=== PATIENT | male | born 1950 | race Caucasian/White ===

== ENCOUNTER → 2020-04-22 | Outpatient (CLI) | payer BC ==
[2020-04-22 11:58] LABS: African American GFR (CKD) >90 (>60 ml/min/1.73 sqM); Blood Urea Nitrogen 13 mg/dL (9-20); Non-African American GFR(CKD) >90 (>60 ml/min/1.73 sqM)
--- NOTE | 2020-04-22 14:47 | CT ---
EXAMINATION TYPE: CT abdomen pelvis w con DATE OF EXAM: 04/22/2020 COMPARISON: NONE HISTORY: 69-year-old male pain, K57.32, Diverticulitis TECHNIQUE: Contiguous axial scanning of the abdomen and pelvis following administration of 100 ml Omn ipaque 300 IV contrast. Delayed images through the kidneys and coronal/sagittal reconstructions perf ormed. CT DLP: 1427.5 mGycm Automated exposure control for dose reduction was used. FINDINGS: Heart normal size without pericardial effusion. Lung bases clear without pleural effusion. Small hiatal hernia. Liver borderline in size at 17.3 cm. There is low attenuation of the hepatic parenchyma suggesting fa tty infiltration. Nonspecific 8 mm hypodensity centrally in the right liver lobe likely a cyst. Stephanie l venous system is patent. No biliary ductal dilatation. Gallbladder, adrenal glands, spleen, and pancreas appear within normal limits. Bilateral extrarenal pelves with symmetric uptake and excretion of contrast in the kidneys. 1.7 cm cortical cyst anterior lower pole left kidney. No dilated small bowel, free fluid, free air. Nonspecific prominent 9 mm left common iliac chain lymph node. Otherwise, no mesenteric or retroperit zamora lymphadenopathy seen. Cecum is high riding. Scattered mild stool burden. Generalized colonic diverticulosis, greatest in th e sigmoid colon. There may be slight pericolonic fat stranding at the proximal sigmoid colon, coronal image 43. Staple line from prior resection and re-anastomosis at the rectosigmoid junction. No peric olic inflammatory change. Mild atherosclerotic calcifications throughout the infrarenal abdominal aorta and iliac arteries. Multiple infraumbilical ventral abdominal wall hernias, largest measuring 7.1 cm wide and the second largest measuring 3.0 cm wide. These hernias and 11.7 cm craniocaudal. Additional small supraumbilical midline hernia measuring 2.7 cm wide. Prior inferior abdominal wall mesh repair. Some thickening in the bilateral inguinal regions suggest inguinal hernia repairs as well. This can be correlated clinically. There appears to be a large hydrocele of the left hemiscrotum measuring up to 9.8 x 8.9 x 7.0 cm. Circumferential bladder wall thickening. Central prostatic calcifications. Prostate gland enlargement 5.3 cm wide. No abnormal fluid collections in the pelvis or pelvic lymphadenopathy seen. Bones: Right hip total arthroplasty. Moderate degenerative change left hip. Moderate degenerative disc disea se and facet arthropathy lower lumbar spine. IMPRESSION: 1. LARGE 9.8 CM LEFT SCROTAL HYDROCELE. CLINICAL CORRELATION RECOMMENDED. CONSIDER SCROTAL ULTRASOUND . 2. GENERALIZED COLONIC DIVERTICULOSIS, GREATEST IN THE SIGMOID COLON. PRIOR RESECTION AND REANASTOMOS IS AT THE RECTOSIGMOID JUNCTION. POSSIBLE MILD ACUTE DIVERTICULITIS ALONG THE PROXIMAL SIGMOID. NO AB SCESS OR FREE AIR. 3. PRIOR LOWER ABDOMINAL VENTRAL WALL MESH REPAIR. THERE IS SOME SOFT TISSUE THICKENING IN THE INGUIN AL REGION SUGGESTING PRIOR INGUINAL HERNIA REPAIRS WELL. 4. A SERIES OF MIDLINE INFRAUMBILICAL OMENTAL FAT-CONTAINING HERNIAS SPANNING 11.7 CM CRANIOCAUDAL. T HE LARGEST OF THESE MEASURES 7.1 CM WIDE. A SMALL SUPRAUMBILICAL FAT-CONTAINING MIDLINE HERNIA MEASUR ING 2.7 CM WIDE. 5. CIRCUMFERENTIAL BLADDER WALL THICKENING COULD REPRESENT CHRONIC BLADDER WALL HYPERTROPHY GIVEN PRO STATOMEGALY (5.3 CM WIDE) VERSUS CYSTITIS. CLINICALLY CORRELATE. 6. HEPATIC STEATOSIS AND SMALL HIATAL HERNIA.
== END | disposition home or self-care (01) ==
LOC: RADCTMAIN 11:08
PROVIDERS: ATTEND Surgery Plastic and Reconstructive Surgery
DX: K57.30 Diverticulosis of large intestine without perforation or abscess without bleeding (principal); N43.3 Hydrocele, unspecified; K42.9 Umbilical hernia without obstruction or gangrene; K44.9 Diaphragmatic hernia without obstruction or gangrene; K76.0 Fatty (change of) liver, not elsewhere classified; R93.41 Abnormal radiologic findings on diagnostic imaging of renal pelvis, ureter, or bladder; Z98.0 Intestinal bypass and anastomosis status; Z98.890 Other specified postprocedural states
CPT/HCPCS: 82565; 84520; 74177; 36415; Q9967

== ENCOUNTER 2020-04-29 08:00 | Day surgery (SDC) | payer BC ==
[~2020-04-29 08:00] MED LIST: LACTATED RINGERS 1,000 ML IV SCH
--- NOTE | 2020-04-29 08:15 | P.GSHP ---
History of Present Illness H&P Date: 04/29/20 CHIEF COMPLAINT: GERD and colon screen HISTORY OF PRESENT ILLNESS: The patient is a 69-year-old male who presents with gastroesophageal reflux disease and need for colon screen. Upper and lower endoscopy were offered for further evaluation and management. PAST MEDICAL HISTORY: Please see list. PAST SURGICAL HISTORY: Please see list. MEDICATIONS: Please see list. ALLERGIES: Please see list. SOCIAL HISTORY: No illicit drug use FAMILY HISTORY: No reports of Crohn disease or ulcerative colitis. REVIEW OF ORGAN SYSTEMS: CONSTITUTIONAL: No reports of fevers or chills. GI: Denies any blood in stools or constipation. PHYSICAL EXAM: VITAL SIGNS: Stable GENERAL: Well-developed pleasant in no acute distress. HEENT: No scleral icterus. Extraocular movements grossly intact. Moist buccal mucosa. NECK: Supple without lymphadenopathy. CHEST: Unlabored respirations. Equal bilateral excursions. CARDIOVASCULAR: Regular rate and rhythm. Distal 2+ pulses. ABDOMEN: Soft, nondistended. MUSCULOSKELETAL: No clubbing, cyanosis, or edema. ASSESSMENT: 1. Gastroesophageal reflux disease 2. Colon screen. PLAN: 1. Recommend proceeding with an upper and lower endoscopy Past Medical History Past Medical History: Hyperlipidemia, Osteoarthritis (OA) Additional Past Medical History / Comment(s): DIVERTICULITIS History of Any Multi-Drug Resistant Organisms: None Reported Past Surgical History: Appendectomy, Back Surgery, Bowel Resection, Hernia Repair, Joint Replacement Additional Past Surgical History / Comment(s): RIGHT TOTAL HIP. COLON RESECTION WITH OSTOMY WITH REVERSAL. LOWER BACK SURGERY. Past Anesthesia/Blood Transfusion Reactions: No Reported Reaction Past Psychological History: No Psychological Hx Reported Smoking Status: Former smoker Past Alcohol Use History: Daily Additional Past Alcohol Use History / Comment(s): STOPPED SMOKING 8 YEARS, 1PPD DAY. 6 BEERS PER DAY Past Drug Use History: None Reported Medications and Allergies Home Medications Medication Instructions Recorded Confirmed Type Naproxen [Naprosyn] 500 mg PO DAILY 04/27/20 04/27/20 History Allergies Allergy/AdvReac Type Severity Reaction Status Date / Time No Known Allergies Allergy Verified 04/27/20 16:03
[2020-04-29 08:29] VITALS: RESP 16; TEMP 98.2
[2020-04-29] MEDS ORDERED: LIDOCAINE 1% (10MG/ML) FOR IV START INTRADERMA ONE (08:40)
[2020-04-29] MEDS ORDERED: LIDOCAINE 1% INJ 10MG/ML (20 ML MDV) ONE (08:50)
[2020-04-29] MEDS ORDERED: PROPOFOL 10 MG/ML 20 ML VIAL IV ONE (08:50)
[2020-04-29] MEDS ORDERED: GLYCOPYRROLATE 0.2 MG/ML 2 ML VIAL ONE (08:50)
--- NOTE | 2020-04-29 09:04 | P.PCN ---
Date of Procedure: 04/29/20 Description of Procedure: PREOPERATIVE DIAGNOSIS: Gastroesophageal reflux disease. History of gastric ulcers POSTOPERATIVE DIAGNOSIS: Gastroesophageal reflux disease. History of gastric ulcers Gastritis. Diaphragmatic hiatal hernia Duodenal polyps OPERATION: Esophagogastroduodenoscopy with biopsies along antrum and duodenum SURGEON: Stormy hSi MD ANESTHESIA: MAC. INDICATIONS: The patient is a 69-year-old male who presents with a history of reflux disease. Benefits and risks of the procedure were described. Informed consent was obtained. DESCRIPTION: The patient was brought into the endoscopy suite and laid in the left lateral decubitus position. An Olympus gastroscope was passed along the posterior oropharynx down to the distal esophagus where the squamocolumnar junction was encountered at 41 cm from the incisors. The stomach was entered and no bile reflux was found. Additional findings are listed below. Biopsies with cold forceps were obtained of the antrum. The first through third portion of the duodenum was examined and remarkable for duodenal polyps first portion. Retrofle xion of the scope confirmed Hill grade 2 lower esophageal valve. The squamocolumnar junction demonstrated LA grade C erosive esophagitis. The stomach was desufflated. The patient tolerated the procedure well. FINDINGS: Squamocolumnar junction 40 cm from the incisors. Diaphragmatic hiatus at 44 cm. Hiatal hernia, 4 cm Hill grade 2 lower esophageal valve. LA grade C erosive esophagitis. Duodenal polyps first portion with cold biopsy forceps obtained Chronic gastritis RECOMMENDATIONS: Upper endoscopy as needed.
--- NOTE | 2020-04-29 09:20 | P.PCN ---
Date of Procedure: 04/29/20 Description of Procedure: PREOPERATIVE DIAGNOSIS: Personal history of colon polyps History of sigmoid colectomy for diverticulitis History of colostomy reversal POSTOPERATIVE DIAGNOSIS: Personal history of colon polyps History of sigmoid colectomy for diverticulitis History of colostomy reversal Diverticulosis, descending colon Internal and external hemorrhoids OPERATION: Colonoscopy to the cecum, ileocecal valve and appendiceal orifice. SURGEON: Stormy Shi MD. ANESTHESIA: MAC. INDICATIONS: The patient is a 69-year-old female who presents for colonoscopy screening. Last colonoscopy 5 years ago. Benefits and risks were described and informed consent was obtained. DESCRIPTION OF PROCEDURE: The patient had undergone Gatorade, MiraLAX and Dulcolax prep. He had been brought into the operating room and laid in the left lateral decubitus position. After adequate intravenous sedation, the rectum was examined with 2% lidocaine jelly. The prostate was unremarkable. External hemorrhoids were encountered. The rectal tone was within normal limits. No lesions were palpated in the rectal vault. An Olympus colonoscope was advanced until the cecum, ileocecal valve and appendiceal orifice were clearly viewed. The prep was excellent. Scattered diverticulosis was encountered from 30 cm to 20 cm. No colonic polyps were found. No evidence of focal colitis was found. Retroflexion of the scope demonstrated grade 2 internal hemorrhoids without active bleeding or inflammation. The colon was desufflated. The patient had tolerated the procedure well. Withdrawal time was over 6 minutes. FINDINGS: Aronchick preparation quality scale 1 (1-5) Internal hemorrhoids, grade 2 External prolapsed hemorrhoids, grade 3 No arteriovenous malformations. No adenomatous polyps. No focal colitis. RECOMMENDATIONS: Lower endoscopy in 2024 or Cologaurd Plan - Discharge Summary Discharge Rx Participant: No New Discharge Prescriptions: Continue Naproxen [Naprosyn] 500 mg PO DAILY Discharge Medication List Naproxen [Naprosyn] 500 mg PO DAILY 04/27/20 [History] Follow up Appointment(s)/Referral(s): Stormy Shi MD [STAFF PHYSICIAN] - 05/18/20 Patient Instructions/Handouts: Diverticulosis Diet (GEN), Diverticulosis (DC), Hemorrhoids (DC) Activity/Diet/Wound Care/Special Instructions: Repeat colonoscopy 2024 Discharge Disposition: HOME SELF-CARE
[2020-04-29 09:37] VITALS: BP 131/62; PULSE 70
== END 2020-04-29 10:24 | disposition home or self-care (01) ==
LOC: ORWHC2ENDO 08:00
PROVIDERS: ATTEND Surgery Plastic and Reconstructive Surgery
DX: Z12.11 Encounter for screening for malignant neoplasm of colon (principal); K57.30 Diverticulosis of large intestine without perforation or abscess without bleeding; Z86.010 Personal history of colon polyps; K29.50 Unspecified chronic gastritis without bleeding; K29.80 Duodenitis without bleeding; K21.0 Gastro-esophageal reflux disease with esophagitis; K22.10 Ulcer of esophagus without bleeding; K31.7 Polyp of stomach and duodenum; K44.9 Diaphragmatic hernia without obstruction or gangrene; K64.4 Residual hemorrhoidal skin tags; K64.1 Second degree hemorrhoids; E78.5 Hyperlipidemia, unspecified; M19.90 Unspecified osteoarthritis, unspecified site; Z87.11 Personal history of peptic ulcer disease; Z87.19 Personal history of other diseases of the digestive system; Z90.49 Acquired absence of other specified parts of digestive tract; Z79.1 Long term (current) use of non-steroidal anti-inflammatories (NSAID); Z96.641 Presence of right artificial hip joint; Z87.891 Personal history of nicotine dependence
CPT/HCPCS: 88305; 43239; J2001; J2704; G0105

== ENCOUNTER → 2021-10-25 | Outpatient (CLI) | payer BC ==
[2021-10-26 13:28] LABS: Coronavirus SARS CoV-2 Not Detected (Not Detected)
== END | disposition home or self-care (01) ==
LOC: LABPAT 15:01
PROVIDERS: ATTEND Surgery Plastic and Reconstructive Surgery
DX: Z20.822 Contact with and (suspected) exposure to COVID-19 (principal)
CPT/HCPCS: U0003; C9803

== ENCOUNTER 2021-10-28 09:34 | Day surgery (SDC) | payer BC ==
[2021-10-26 15:38] VITALS: BMI 29.2
--- NOTE | 2021-10-28 07:58 | P.GSHP ---
History of Present Illness H&P Date: 10/28/21 CHIEF COMPLAINT: Ventral hernia HISTORY OF PRESENT ILLNESS: The patient is a 70-year-old male presents with a history of swelling and pain along the abdomen from a hernia. Symptoms have been present for the 6 months. Now he presents for surgical intervention. PAST MEDICAL HISTORY: Please see list. PAST SURGICAL HISTORY: Please see list. MEDICATIONS: Please see list. ALLERGIES: Please see list. SOCIAL HISTORY: No illicit drug use FAMILY HISTORY: No reports of Crohn disease or ulcerative colitis. REVIEW OF ORGAN SYSTEMS: CONSTITUTIONAL: No reports of fevers or chills. No reports of weight loss despite prior attempts. GI: Denies any blood in stools or constipation. PHYSICAL EXAM: VITAL SIGNS: Stable GENERAL: Well-developed pleasant male in no acute distress. HEENT: No scleral icterus. Extraocular movements grossly intact. Moist buccal mucosa. NECK: Supple without lymphadenopathy. CHEST: Unlabored respirations. Equal bilateral excursions. CARDIOVASCULAR: Regular rate and rhythm. Distal 2+ pulses. ABDOMEN: Soft, nondistended. Palpable defect of the abdomen. No peritoneal signs. MUSCULOSKELETAL: No clubbing, cyanosis, or edema. ASSESSMENT: 1. Ventral hernia PLAN: 1. Recommend proceeding with robotic ventral with mesh. 2. Benefits and risks of surgical intervention was discussed including possibility of open technique. 3. DVT prophylaxis. 4. Antibiotic prophylaxis. 5. Non narcotic pain management including abdominal wall block described Past Medical History Past Medical History: Hyperlipidemia, Osteoarthritis (OA) Additional Past Medical History / Comment(s): DIVERTICULITIS. Hyperlipidemia resolved. History of Any Multi-Drug Resistant Organisms: None Reported Past Surgical History: Appendectomy, Back Surgery, Bowel Resection, Hernia Repair, Joint Replacement Additional Past Surgical History / Comment(s): RIGHT TOTAL HIP REPLACEMENT, COLON RESECTION WITH OSTOMY AND THEN REVERSAL, LOWER BACK SURGERY, vein stripping. Past Anesthesia/Blood Transfusion Reactions: No Reported Reaction Past Psychological History: No Psychological Hx Reported Smoking Status: Former smoker Past Alcohol Use History: Daily Additional Past Alcohol Use History / Comment(s): STOPPED SMOKING 10 YEARS AGO, SMOKED 1PPD. HAS 4-6 BEERS PER DAY. Past Drug Use History: None Reported - Past Family History Mother Family Medical History: No Reported History Medications and Allergies Home Medications Medication Instructions Recorded Confirmed Type Celecoxib [CeleBREX] 200 mg PO BID 10/26/21 10/26/21 History Allergies Allergy/AdvReac Type Severity Reaction Status Date / Time No Known Allergies Allergy Verified 10/26/21 15:23
[~2021-10-28 09:34] MED LIST changes: +ACETAMINOPHEN TAB 500 MG TAB PO PRN; +GABAPENTIN 300 MG CAP PO PRN; +HEPARIN SODIUM,PORCINE/PF 5,000 UNIT/0.5 ML SYRINGE SQ PRN; +HYDROmorphone 0.5 MG/0.5 ML SYRINGE IVP PRN; +MELOXICAM 7.5 MG TAB PO PRN; +MIDAZOLAM 2 MG/2 ML VIAL IV PRN; +TAMSULOSIN 0.4 MG CAP.ER.24H PO PRN
[2021-10-28] MEDS ORDERED: ONDANSETRON 4 MG/2 ML VIAL ONE (10:23)
[2021-10-28] MEDS ORDERED: DEXAMETHASONE SOD PHOSPHATE 10 MG/ML 1 ML VIAL IVP ONE (10:40)
[2021-10-28 10:49] LABS: Basophils % (A) 1 %; Eosinophils # (A) 0.2 k/uL (0-0.7); Eosinophils % (A) 2 %; HCT 45.1 % (39.0-53.0); HGB 15.5 gm/dL (13.0-17.5); Lymphocytes # (A) 1.7 k/uL (1.0-4.8); Lymphocytes % (A) 26 %; MCH 31.5 pg (25.0-35.0); MCHC 34.4 g/dL (31.0-37.0); MCV 91.6 fL (80.0-100.0); Mean Platelet Volume 7.3; Monocytes # (A) 0.5 k/uL (0-1.0); Monocytes % (A) 7 %; Neutrophils # (A) 4.1 k/uL (1.3-7.7); Neutrophils % (A) 62 %; Platelet Count 223 k/uL (150-450); RBC 4.93 m/uL (4.30-5.90); RDW 12.5 % (11.5-15.5); WBC 6.5 k/uL (3.8-10.6)
[2021-10-28 11:05] LABS: ALT 16 U/L (4-49); AST 29 U/L (17-59); African American GFR (CKD) >90 (>60 ml/min/1.73 sqM); Albumin 4.1 g/dL (3.5-5.0); Alkaline Phosphatase 71 U/L (38-126); Anion Gap 6 mmol/L; Blood Urea Nitrogen 17 mg/dL (9-20); Calcium 8.9 mg/dL (8.4-10.2); Carbon Dioxide 27 mmol/L (22-30); Chloride 105 mmol/L (98-107); Glucose 118 mg/dL (74-99); Non-African American GFR(CKD) >90 (>60 ml/min/1.73 sqM); Potassium 4.1 mmol/L (3.5-5.1); Sodium 138 mmol/L (137-145); Total Bilirubin 1.2 mg/dL (0.2-1.3); Total Protein 7.2 g/dL (6.3-8.2)
[2021-10-28] MEDS ORDERED: MIDAZOLAM 2 MG/2 ML VIAL IVP ONE (11:24)
[2021-10-28] MEDS ORDERED: fentaNYL (PF) 50 MCG/ML 2 ML AMP IVP ONE (11:24)
[2021-10-28] MEDS ORDERED: fentaNYL (PF) 50 MCG/ML 2 ML AMP ONE (11:42)
[2021-10-28] MEDS ORDERED: GLYCOPYRROLATE 0.2 MG/ML 2 ML VIAL ONE (11:42)
[2021-10-28] MEDS ORDERED: ROCURONIUM 10 MG/ML (5 ML VIAL) IV ONE (11:42)
[2021-10-28] MEDS ORDERED: PROPOFOL 10 MG/ML 20 ML VIAL IV ONE (11:42)
[2021-10-28] MEDS ORDERED: PHENYLEPHRINE-0.9% NACL SYG 1,000 MCG/10 ML SYRINGE ONE (11:42)
[2021-10-28] MEDS ORDERED: ePHEDrine 50 MG/ML 1 ML VIAL ONE (11:42)
[2021-10-28] MEDS ORDERED: SUCCINYLCHOLINE CHLORIDE 100 MG/5 ML SYR IV ONE (11:42)
[2021-10-28] MEDS ORDERED: ROPIVACAINE 5 MG/ML 30 ML VIAL ONE (11:42)
[2021-10-28] MEDS ORDERED: LIDOCAINE 1% INJ 10MG/ML (20 ML MDV) ONE (11:42)
[2021-10-28] MEDS ORDERED: NEOSTIGMINE 1 MG/ML 10 ML VIAL ONE (11:42)
[2021-10-28] MEDS ORDERED: HYDROmorphone (PF) 1 MG/ML ONE (11:42)
[2021-10-28] MEDS ORDERED: SODIUM CHLORIDE 0.9% (PF) 10 ML VIAL ONE (11:42)
[2021-10-28] MEDS ORDERED: MIDAZOLAM 2 MG/2 ML VIAL ONE (11:42)
[2021-10-28] MEDS ORDERED: BUPIVACAIN-EPI 0.25%-1:200,000 30 ML VIAL SQ ONE (12:08)
[2021-10-28] MEDS ORDERED: LACTATED RINGERS 1,000 ML IV ONE ×2 (12:50→15:19)
--- NOTE | 2021-10-28 12:50 | P.ANPRN ---
Procedure Note - Anesthesia - Nerve Block Performed Bilateral Erector Spinae Time Out Performed: Yes (:23) Date of Procedure: 10/28/21 Procedure Start Time: Procedure Stop Time: : Location of Patient: PreOp Indication: Acute Post-Operative Pain, Requested by Surgeon (Haylee) Sedation Type: Sedate with meaningful contact maintained Preparation: Sterile Prep Position: Prone Catheter: None Needle Types: Pajunk Needle Gauge: 21 Ultrasound used to visualize needle placement: Yes Ultrasound used to observe medication spread: Yes Injectate: 0.5% Ropivacaine (see comment for volume) (15cc + 10cc PF Normal saline each side) Blood Aspirated: No Pain Paresthesia on Injection Noted: No Resistance on Injection: Normal Image Stored and Saved: Yes Events: Uneventful and Well Tolerated
[2021-10-28 14:34] VITALS: TEMP 97.5
--- NOTE | 2021-10-28 15:06 | P.OP ---
Date of Procedure: 10/28/21 Description of Procedure: SURGEON: STORMY SHI MD PREOPERATIVE DIAGNOSES: 1. Recurrent incisional hernia 2. History of diverticulitis with colostomy and colostomy reversal 3. Osteoarthritis 4. Former tobacco use POSTOPERATIVE DIAGNOSES: 1. Recurrent incisional hernia 2. History of diverticulitis with colostomy and colostomy reversal 3. Osteoarthritis 4. Former tobacco use 5. Severe epigastric, midline, left abdominal and peritoneal adhesions OPERATION: 1. Robotic-assisted da Paulo Xi laparoscopic lysis of adhesions over 1 hour 2. Robotic-assisted da Paulo Xi laparoscopic repair of recurrent incarcerated incisional hernia with mesh, BARD ventralight ST mesh 15 x 20 cm Anesthesia: GETA, regional, local Estimated Blood Loss (ml): 5 Pathology: 1. Incarcerated incisional hernia defect COMPLICATIONS: None. Operative Findings: 1. 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 Fascia repaired using #1 V-lock suture including fascial imbrication INDICATIONS: The patient is a 70-year-old male who presents with recurrent abdominal wall hernia. His history significant for diverticulitis with colostomy creation and reversal including prior incisional hernia repair. Surgical intervention with laparoscopic versus robotic and open techniques were reviewed. Placement of mesh was also reviewed. Benefits and risks were thoroughly described. Informed consent was obtained. DESCRIPTION OF PROCEDURE: The patient was brought into the operating room and laid in supine position. After general induction, the abdomen had been prepped and draped in standard sterile fashion. Ioban draping was also placed. Prior to incision, a timeout protocol was confirmed with surgical team regarding the patient's name including procedures to be performed. The robot was primed prior to the procedure. A field block using local anesthetic was placed along the proposed port sites. Initial incision was made with an #11 blade along the left upper quadrant. A 0 degree 5 mm laparoscopic trocar entry was performed and insufflated. Three 8 mm ports were placed along the upper abdominal wall under direct localization after exchanging the 5-mm for an 8 mm port. Placements of the ports were 15 cm from the target anatomy and 10 cm apart. An accessory 12 mm port was placed at the left upper quadrant for exchange of mesh including sutures. The da Paulo Xi robot was previously primed, prepped and draped then docked on the left side of the patient. I then sat at the robot Da Paulo Xi console where working arms of the robot including Bovie cautery connected to hook artery, vessel sealer, needle motorcoach driver, and graspers placed by the dam tender assistant. Initial attention was brought to severe adhesions of the omentum to the abdominal wall involving the entire midline pelvis, left upper abdomen. Using hook cautery including vessel sealer, the omentum to abdominal adhesions were addressed with a combination of blunt dissection including sharp dissection of the vessel sealer to reveal the fascial defects. Multiple incarcerated omentum was found within this incisional hernia revealing a Barbadian cheese defect of 15 cm in length and 6 cm in width as measurements were obtained with the ruler. The fascia and abdominal wall was completely cleared. The incarcerated contents were reduced as the peritoneal fat was cleaned from the abdominal wall. Next, hemostasis was checked with cautery. Each hernia defect were oversewn using #1 nonabsorbable V-lock suture with fascial imbrication x 2. Next, ventralight ST mesh 15 x 20 cm was placed with the rough side towards the abdominal wall. Non-absorbable 2-0 VLOC 9 inch sutures were used to fixate the mesh. A final endoscopic imaging was obtained. All instruments and pneumoperitoneum were evacuated from the abdominal cavity. The da Paulo Xi robot was undocked from the patient. I re-scrubbed into the case for closure of incisions. The fascia of the 12-mm port was probed and less than 8-mm in size. The incisions were reapproximated using 4-0 Monocryl in an interrupted subcuticular fashion. Liquid glue was applied to the skin after cleansing the skin with normal saline and dilute hydrogen peroxide. An abdominal binder was placed. An umbilical dressing was placed prior. At the end of the procedure, needle, sponge, and instrument count had been verified correct by surgical instrument repair specialist. The patient was taken to the postanesthesia care unit in stable condition. Plan - Discharge Summary Discharge Rx Participant: Yes New Discharge Prescriptions: New Tamsulosin [Flomax] 0.4 mg PO DAILY #7 cap Simethicone [Gas-X] 125 mg PO AC-TID PRN #20 capsule PRN Reason: Pain Acetaminophen Tab [Tylenol Tab] 1,000 mg PO Q6HR PRN #30 tablet PRN Reason: Pain Cyclobenzaprine [Flexeril] 10 mg PO TID #30 tab Continue Celecoxib [CeleBREX] 200 mg PO BID Discharge Medication List Celecoxib [CeleBREX] 200 mg PO BID 10/26/21 [History] Acetaminophen Tab [Tylenol Tab] 1,000 mg PO Q6HR PRN #30 tablet 10/28/21 [Rx] Cyclobenzaprine [Flexeril] 10 mg PO TID #30 tab 10/28/21 [Rx] Simethicone [Gas-X] 125 mg PO AC-TID PRN #20 capsule 10/28/21 [Rx] Tamsulosin [Flomax] 0.4 mg PO DAILY #7 cap 10/28/21 [Rx] Follow up Appointment(s)/Referral(s): Stormy Shi MD [STAFF PHYSICIAN] - 11/01/21 (Telehealth) Patient Instructions/Handouts: *Surgery [facility] - Managing Your Pain After Surgery Without Opioids, Abdominal Binder (DC), Incisional Hernia (DC), Ventral Hernia Repair (GEN) Activity/Diet/Wound Care/Special Instructions: DO NOT REMOVE UMBILICAL DRESSING. Using antibacterial soap. No lifting over 4 pounds 4 weeks, November 25January shower. No bathtub soaks for 2 weeks, November 11 Wear abdominal binder daily for comfort except for showering. Use ice along incisions for today to prevent swelling. Take tylenol, aleve/ibuprofen, simethicone scheduled for 3 days for best pain relief Discharge Disposition: HOME SELF-CARE
[2021-10-28 16:21] VITALS: PULSE 82
[2021-10-28 17:13] VITALS: BP 110/54; RESP 14
== END 2021-10-28 17:20 | disposition home or self-care (01) ==
LOC: OR 09:34
PROVIDERS: ATTEND Surgery Plastic and Reconstructive Surgery
DX: K43.2 Incisional hernia without obstruction or gangrene (principal); K66.0 Peritoneal adhesions (postprocedural) (postinfection); M19.90 Unspecified osteoarthritis, unspecified site; E78.5 Hyperlipidemia, unspecified; Z90.49 Acquired absence of other specified parts of digestive tract; Z87.891 Personal history of nicotine dependence; Z98.890 Other specified postprocedural states; Z96.641 Presence of right artificial hip joint; Z79.899 Other long term (current) drug therapy
CPT/HCPCS: 49329; 49657; S2900; 64999; 80053; 85025; 88302